=== PATIENT | female | born 1965 | race Caucasian/White ===

== ENCOUNTER 2017-02-10 10:47 | Emergency (ER) | payer MEDICAID ==
[~2017-02-10] VITALS: Ht 157.5 cm; Wt 68.5 kg
[~2017-02-10 10:47] MED LIST: CEPH-443 PO; CLIN-73 PO; DM MEDS; IBUP-1542 PO; IBUP400T22 PO; NITR-58 PO; ONDA4TAB8 PO; PHEN-538 PO
[2017-02-10 10:52] VITALS: Ht 157.5 cm; Wt 68.5 kg
[2017-02-10] MEDS ORDERED: ONDANSETRON 4 MG INJ IV STA (12:57)
[2017-02-10] MEDS ORDERED: HYDROmorphONE 1 MG/ML SYG IV STA (12:57)
[2017-02-10] MEDS ORDERED: SOD CHLORIDE 0.9% 1,000 ML IV STA (12:57)
[2017-02-10 13:17] LABS: ADD SCAN DIFF NO
[2017-02-10 13:20] LABS: ADD UMIC YES; URINE BILIRUBIN (Dip) NEGATIVE (NEGATIVE); URINE BLOOD (Dip) 2+ (NEGATIVE); URINE COLOR LT. YELLOW (YELLOW); URINE GLUCOSE (Dip) NEGATIVE (NEGATIVE); URINE KETONES (Dip) NEGATIVE (NEGATIVE); URINE LEUKOCYTE ESTERASE (Dip) 3+ (NEGATIVE); URINE NITRITE (Dip) NEGATIVE (NEGATIVE); URINE TOTAL PROTEIN (Dip) NEGATIVE (NEGATIVE); URINE UROBILINOGEN (Dip) 0.2 E.U./dL (0.1-1.0)
[2017-02-10 13:21] LABS: BASOPHIL # 0.1 10^3/ul (0.0-0.1); BASOPHILS % 0.8 % (0.0-2.0); EOSINOPHILS # 0.2 10^3/ul (0.0-0.5); EOSINOPHILS % 1.6 % (0.0-7.0); HEMATOCRIT 40.8 % (37.0-47.0); HEMOGLOBIN 13.2 g/dl (12.0-16.0); LYMPHOCYTES # 2.5 10^3/ul (0.8-2.9); LYMPHOCYTES % 23.9 % (15.0-51.0); MEAN CORPUSCULAR HGB CONC 32.4 g/dl (32.0-37.0); MEAN CORPUSCULAR VOLUME 86.6 fl (82.0-101.0); MEAN PLATELET VOLUME 10.5 fl (7.4-10.4); MONOCYTE # 0.6 10^3/ul (0.3-0.9); MONOCYTES % 5.9 % (0.0-11.0); NEUTROPHIL # 7.2 10^3/ul (1.6-7.5); NEUTROPHILS % 67.5 % (39.0-77.0); PLATELET COUNT 348 10^3/UL (140-415); RED BLOOD COUNT 4.71 10^6/ul (4.20-5.40); RED CELL DISTRIBUTION WIDTH 12.8 % (11.5-14.5); WHITE BLOOD COUNT 10.6 10^3/ul (4.8-10.8)
[2017-02-10 13:28] LABS: SQUAMOUS EPITHELIAL CELL,UR FEW
[2017-02-10 13:29] LABS: BACTERIA,URINE FEW
[2017-02-10] MEDS ORDERED: LORAZEPAM 2 MG INJ IV ONE (13:30)
[2017-02-10 13:36] LABS: ALBUMIN 4.4 g/dl (3.3-4.9)
[2017-02-10 13:38] LABS: BILIRUBIN,INDIRECT 0.1 mg/dl (0-1.1); BILIRUBIN,TOTAL 0.1 mg/dl (0.2-1.3); CREATININE 0.52 mg/dl (0.44-1.00)
[2017-02-10 13:39] LABS: ALBUMIN/GLOBULIN RATIO 1.22; CALCIUM 9.9 mg/dl (8.4-10.2)
[2017-02-10] MEDS ORDERED: IOHEXOL 300MG/ML 150 ML BTL ONE (14:37)
[2017-02-10] MEDS ORDERED: SOD CHLORIDE 0.9% 100 ML ONE (14:37)
--- NOTE | 2017-02-10 15:58 | RADRPT ---
PROCEDURE: CT abdomen and pelvis with intravenous contrast. CLINICAL INDICATION: Abdominal Pain TECHNIQUE: Following intravenous contrast, spiral CT of the abdomen pelvis was performed and is re constructed at 2.5 mm contiguous axial intervals from the dome of the diaphragm to the inferior pubi c rami. Computer reformatted coronal and sagittal images are included. CT D I 11 millicurie Dose 616 millicurie per centimeter COMPARISON: CT abdomen pelvis June 07, 2016 FINDINGS: Lung bases are clear of any infiltrate or mass. There is no effusion. Liver is enlarged measuring 20 cm. There is fatty infiltration. No mass or ductal dilatation is se en. No splenic, adrenal or pancreatic abnormalities present. Kidneys excrete contrast symmetrically. No hydronephrosis, calculus or masses present. Ureters are of normal course and caliber with no stone. No bladder mass or stone is present. Uterus and ovaries are normal. No bowel mass or obstruction is seen. The appendix is normal. There is no phlegmon, ascites or pneum operitoneum. No aneurysm is detected. There is no adenopathy. There are visible but nonpathologically enlarged retroperitoneal nodes. The osseous structures are intact. IMPRESSION: No evidence of urolithiasis, obstructive uropathy, diverticulitis or appendicitis. Enlarged fatty liver. .Gen Maher MD, MD Date Time Electronically viewed and signed by .Gen Maher MD, on 02/10/2017 15:58 .A/
[2017-02-10 16:20] VITALS: BP 107/69; PULSE 85; RESP 18
[2017-02-10] MEDS ORDERED: CIPR500T4 PO (16:28)
[2017-02-10] MEDS ORDERED: HYDR-902 PO (16:28)
[2017-02-10] MEDS ORDERED: PHEN-538 PO (16:28)
--- NOTE | 2017-02-10 16:33 | ERD ---
ER Documentation Chief Complaint Date/Time DATE: 02/10/17 TIME: 16:29 Chief Complaint Complains of lower abdominal pain that radiates to the back started this am HPI This is a 51-year-old female who developed some suprapubic constant pain this morning. She says there is some radiation to the back. She has no nausea vomiting or diarrhea. The pain is described as dull and constant. No dysuria but she has frequency no hematuria no epigastric pain no chest pain shortness of breath no fever or history of renal stones ROS All systems reviewed and are negative except as per history of present illness. Medications Home Meds Active Scripts Phenazopyridine Hcl* (Pyridium*) 200 Mg Tab, 200 MG PO TID Y for URINARY PAIN, # 6 TAB Prov:MARCELLO RILEY DO 02/10/17 Hydrocodone/Acetaminophen ([place] 10-325 Tablet) 1 Each Tablet, 1 TAB PO Q6H Y for PAIN, #20 TAB Prov:MARCELLO RILEY DO 02/10/17 Ciprofloxacin Hcl* (Ciprofloxacin Hcl*) 500 Mg Tablet, 500 MG PO BID for 7 Days , TAB Prov:MARCELLO RILEY DO 02/10/17 Ibuprofen* (Motrin*) 400 Mg Tab, 400 MG PO Q6H Y for PAIN AND OR ELEVATED TEMP, #30 TAB Prov:SINDHU MELENDEZ NP 07/29/16 Clindamycin Hcl* (Clindamycin Hcl*) 300 Mg Capsule, 300 MG PO TID for 10 Days, CAP Prov:SINDHU MELENDEZ NP 07/29/16 Ondansetron Hcl* (Zofran*) 4 Mg Tablet, 4 MG PO Q8H Y for NAUSEA AND/OR VOMITING , #30 TAB Prov:NIGEL PIZANO MD 06/08/16 Ibuprofen* (Ibuprofen*) 600 Mg Tablet, 600 MG PO Q8 for FEVER, #30 TAB Prov:NIGEL PIZANO MD 06/08/16 Cephalexin* (Keflex*) 500 Mg Capsule, 500 MG PO QID for 7 Days, CAP Prov:NIGEL PIZANO MD 06/08/16 Phenazopyridine Hcl* (Pyridium*) 200 Mg Tab, 200 MG PO BID, #6 TAB Prov:HIRAL ESPARZA MD 06/05/16 Ibuprofen* (Motrin*) 600 Mg Tab, 600 MG PO Q6H Y for PAIN AND OR ELEVATED TEMP, #30 TAB Prov:HIRAL ESPARZA MD 06/05/16 Nitrofurantoin Monohyd Macrocr* (Macrobid*) 100 Mg Capsr, 100 MG PO BID for 7 Days, CAP Prov:HIRAL ESPARZA MD 06/05/16 Reported Medications [DM meds] Unknown Strength No Conflict Check 07/29/16 Allergies Allergies: Coded Allergies: No Known Allergy (Unverified , 07/29/16) PMhx/Soc History of Surgery: Yes (Bitubal ligation) Anesthesia Reaction: No Hx Neurological Disorder: No Hx Respiratory Disorders: No Hx Cardiac Disorders: No Hx Psychiatric Problems: No Hx Miscellaneous Medical Probl: Yes (DM) Hx Alcohol Use: No Hx Substance Use: No Hx Tobacco Use: Yes Smoking Status: Current every day smoker FmHx Family History: No coronary disease Physical Exam Vitals Vital Signs Date Time Temp Pulse Resp B/P Pulse Ox O2 Delivery O2 Flow Rate FiO2 02/10/17 16:20 85 18 107/69 95 Room Air 02/10/17 13:32 84 17 136/73 97 Room Air 02/10/17 10:52 98.3 85 20 134/78 96 Physical Exam Const: Well-developed, well-nourished Head: Atraumatic, normocephalic Eyes: Normal Conjunctiva, PERRLA, EOMI, normal sclera, no nystagmus ENT: Normal External Ears, Nose and Mouth, moist mucus membranes. Neck: Full range of motion. No meningismus, no lymphadenopathy. Resp: Clear to auscultation bilaterally, no wheezing, rhonchi, rales Cardio: Regular rate and rhythm, no murmurs, S1 S2 present Abd: Soft, moderate suprapubic tenderness, non distended. Normal bowel sounds, no guarding or rebound, no pulsitile abdominal masses or bruits Skin: No petechiae or rashes, no ecchymosis , no maculopapular rash Back: No midline or flank tenderness Ext: No cyanosis, or edema, FROM x 4, normal inspection, neurovascularly intact x 4 Neur: Awake and alert, STR 5/5 x 4, sensation intact x 4, no focal findings, cerebellum intact Psych: Normal Mood and Affect Result Diagram: 02/10/17 1310 02/10/17 1310 Results 24 hrs Laboratory Tests Test 02/10/17 13:10 White Blood Count 10.610^3/ul Red Blood Count 4.7110^6/ul Hemoglobin 13.2g/dl Hematocrit 40.8% Mean Corpuscular Volume 86.6fl Mean Corpuscular Hemoglobin 28.0pg Mean Corpuscular Hemoglobin Concent 32.4g/dl Red Cell Distribution Width 12.8% Platelet Count 84540^3/UL Mean Platelet Volume 10.5fl Neutrophils % 67.5% Lymphocytes % 23.9% Monocytes % 5.9% Eosinophils % 1.6% Basophils % 0.8% Nucleated Red Blood Cells % 0.0/100WBC Neutrophils # 7.210^3/ul Lymphocytes # 2.510^3/ul Monocytes # 0.610^3/ul Eosinophils # 0.210^3/ul Basophils # 0.110^3/ul Nucleated Red Blood Cells # 0.010^3/ul Urine Color LT. YELLOW Urine Clarity HAZY Urine pH 5.5 Urine Specific [place] 1.010 Urine Ketones NEGATIVE Urine Nitrite NEGATIVE Urine Bilirubin NEGATIVE Urine Urobilinogen 0.2 E.U./dL Urine Leukocyte Esterase 3+ Urine Microscopic RBC 5-10/HPF Urine Microscopic WBC >50/HPF Urine Squamous Epithelial Cells FEW Urine Bacteria FEW Urine Hemoglobin 2+ Urine Glucose NEGATIVE% Urine Total Protein NEGATIVE Sodium Level 141mmol/L Potassium Level 4.0mmol/L Chloride Level 101mmol/L Carbon Dioxide Level 25mmol/L Anion Gap 19 Blood Urea Nitrogen 10mg/dl Creatinine 0.52mg/dl Glucose Level 173mg/dl Calcium Level 9.9mg/dl Total Bilirubin 0.1mg/dl Direct Bilirubin 0.00mg/dl Indirect Bilirubin 0.1mg/dl Aspartate Amino Transf (AST/SGOT) 29IU/L Alanine Aminotransferase (ALT/SGPT) 35IU/L Alkaline Phosphatase 132IU/L Total Protein 8.0g/dl Albumin 4.4g/dl Globulin 3.60g/dl Albumin/Globulin Ratio 1.22 Lipase 68U/L Current Medications Medications (Trade) Dose Ordered Sig/Chuck Route PRN Reason Start Time Stop Time Status Last Admin Dose Admin Sodium Chloride (NS) 1,000 ml @ 1,000 mls/hr Q1H STAT IV 02/10/17 12:57 02/10/17 13:56 DC 02/10/17 13:20 Hydromorphone HCl (Dilaudid) 1 mg ONCE STAT IV 02/10/17 12:57 02/10/17 12:58 DC 02/10/17 13:20 Ondansetron HCl (Zofran Inj) 4 mg ONCE STAT IV 02/10/17 12:57 02/10/17 12:58 DC 02/10/17 13:20 Lorazepam (Ativan) 2 mg ONCE ONCE IV 02/10/17 13:30 02/10/17 13:31 DC 02/10/17 14:28 IV Flush 10 ml 10 ml STK-MED ONCE .ROUTE 02/10/17 14:37 02/10/17 14:38 DC 02/10/17 15:22 Sodium Chloride (NS) 100 ml @ ud STK-MED ONCE .ROUTE 02/10/17 14:37 02/10/17 14:38 DC 02/10/17 15:22 Iohexol (Omnipaque 300mg/ ml) 150 ml STK-MED ONCE .ROUTE 02/10/17 14:37 02/10/17 14:38 DC 02/10/17 15:23 Procedures/MDM PROCEDURE: CT abdomen and pelvis with intravenous contrast. CLINICAL INDICATION: Abdominal Pain TECHNIQUE: Following intravenous contrast, spiral CT of the abdomen pelvis was performed and is reconstructed at 2.5 mm contiguous axial intervals from the dome of the diaphragm to the inferior pubic rami. Computer reformatted coronal and sagittal images are included. CT D I 11 millicurie Dose 616 millicurie per centimeter COMPARISON: CT abdomen pelvis June 07, 2016 FINDINGS: Lung bases are clear of any infiltrate or mass. There is no effusion. Liver is enlarged measuring 20 cm. There is fatty infiltration. No mass or ductal dilatation is seen. No splenic, adrenal or pancreatic abnormalities present. Kidneys excrete contrast symmetrically. No hydronephrosis, calculus or masses present. Ureters are of normal course and caliber with no stone. No bladder mass or stone is present. Uterus and ovaries are normal. No bowel mass or obstruction is seen. The appendix is normal. There is no phlegmon, ascites or pneumoperitoneum. No aneurysm is detected. There is no adenopathy. There are visible but nonpathologically enlarged retroperitoneal nodes. The osseous structures are intact. IMPRESSION: No evidence of urolithiasis, obstructive uropathy, diverticulitis or appendicitis. Enlarged fatty liver. .Gen Maher MD, MD Date Time Electronically viewed and signed by .Gen Maher MD, MD on 02/10/2017 15: 58 .A/ CC: MARCELLO RILEY DO Patient's blood work is unremarkable however she does have a urinary tract infection this is a likely cause of her pain from acute cystitis Will discharge with Cipro and Pyridium and [place] Departure Diagnosis: Primary Impression: UTI (urinary tract infection) Urinary tract infection type: acute cystitis Hematuria presence: without hematuria Qualified Code: N30.00 - Acute cystitis without hematuria Condition: Stable Patient Instructions: Understanding Urinary Tract Infections (UTIs) Referrals: DOCTOR,NOT ON STAFF (PCP) MARCELLO RILEY DO Feb 10, 2017 16:33
== END 2017-02-10 16:46 | disposition home or self-care (01) ==
LOC: E/R 10:47
DX: N30.00 Acute cystitis without hematuria (principal); E11.9 Type 2 diabetes mellitus without complications; F17.210 Nicotine dependence, cigarettes, uncomplicated
CPT/HCPCS: 36415; 74177; 80053; 81001; 83690; 85025; 87086; 96374; 96375; J1170; J2060; J2405; J7030; Q9967; Z7502; Z7610; 81003

== ENCOUNTER 2018-09-18 10:21 | Emergency (ER) | END 2018-09-18 12:20 | disposition home or self-care (01) ==